=== PATIENT | female | born 1955 | race Caucasian/White ===

== ENCOUNTER → 2024-06-25 12:48 | Outpatient (REF) | payer MEDICARE, OTHER, SELFPAY | LOC: WDC 12:48 | PROVIDERS: ATTENDING PHYSICIAN Family Medicine | DX: Z12.31 Encounter for screening mammogram for malignant neoplasm of breast (principal) | CPT/HCPCS: 77063; 77067 ==

== ENCOUNTER → 2024-07-26 10:15 | Outpatient (REF) | payer MEDICARE, OTHER, SELFPAY | LOC: RCS 10:15 | PROVIDERS: ATTENDING PHYSICIAN Internal Medicine; FAMILY PHYSICIAN Family Medicine | DX: I35.0 Nonrheumatic aortic (valve) stenosis (principal) | CPT/HCPCS: 93306 ==

== ENCOUNTER → 2025-02-24 10:13 | Outpatient (REF) | payer MEDICARE, OTHER, SELFPAY | LOC: WDC 10:13 | PROVIDERS: ATTENDING PHYSICIAN Nurse Practitioner Adult Health | DX: N64.52 Nipple discharge (principal) | CPT/HCPCS: 76642; 77061; 77065 ==

== ENCOUNTER → 2025-02-28 18:45 | Outpatient (REF) | payer MEDICARE, OTHER, SELFPAY | LOC: MRI 3T 18:45 | PROVIDERS: ATTENDING PHYSICIAN Nurse Practitioner Adult Health; FAMILY PHYSICIAN Family Medicine | DX: N64.52 Nipple discharge (principal) | CPT/HCPCS: 77049 ==

== ENCOUNTER → 2025-03-18 14:45 | Outpatient (REF) | payer MEDICARE, OTHER, SELFPAY | LOC: WDC 14:45 | PROVIDERS: ATTENDING PHYSICIAN Surgery; FAMILY PHYSICIAN Nurse Practitioner Adult Health | DX: R92.8 Other abnormal and inconclusive findings on diagnostic imaging of breast (principal) | CPT/HCPCS: 76642 ==

== ENCOUNTER → 2025-04-02 12:58 | Outpatient (REF) | payer MEDICARE, OTHER, SELFPAY ==
--- NOTE | 2025-04-02 15:50 | OID.BR.INTR ---
[facility] Breast Navigator - Initial
- -
Date of Contact: 04/02/25
Met with patient. Patient given written information on navigator services available at [facility]. Will follow up as needed per protocol.
== END ==
LOC: WDC 12:58
PROVIDERS: ATTENDING PHYSICIAN Surgery
DX: N63.10 Unspecified lump in the right breast, unspecified quadrant (principal); N63.11 Unspecified lump in the right breast, upper outer quadrant
CPT/HCPCS: 19083; 88305; 88342; 88360; A4648

== ENCOUNTER → 2025-04-28 08:51 | Outpatient (REF) | payer MEDICARE, OTHER, SELFPAY | LOC: WDC 08:51 | PROVIDERS: ATTENDING PHYSICIAN Surgery | DX: D05.91 Unspecified type of carcinoma in situ of right breast (principal) | CPT/HCPCS: 19285; A4648 ==

== ENCOUNTER 2025-04-29 06:04 | Day surgery (SDC) | payer MEDICARE, OTHER, SELFPAY ==
[2025-04-29 06:49] VITALS: BMI 22.3
[2025-04-29 06:50] VITALS: BP 162/76; BMI 22.3
--- NOTE | 2025-04-29 06:59 | W.IMMPOSTOP ---
Surgical Immed Post Op Note
-
Primary Surgeon: [email or web address]
Assisting Surgeon: None
Pre-op Diagnosis: Right breast DCIS
Post-op Diagnosis: Same
Procedure Performed: Right localized lumpectomy, sentinel lymph node mapping and biopsy
Anesthesia Type: TIVA
Specimen / Cultures: Right lumpectomy, margins
Estimated Blood Loss: 6cc
Complications: None
Operative Findings: Clip and reflector in specimen
--- NOTE | 2025-04-29 06:59 | W.SUR.PREOP ---
Pre-Operative Surgical Note
-
I have examined this patient prior to the performance of the scheduled procedure.
The patient's condition is unchanged from the time of the current History and
Physical and the patient is able to undergo the scheduled procedure.
[2025-04-29] MEDS: TYLENOL 1000 MG PO (07:03)
[2025-04-29] MEDS: LOVENOX 40 MG SC (07:06)
[2025-04-29] MEDS: NORMOSOL-R/PLASMALYTE-A 1000 IV (07:06)
[2025-04-29 09:09] VITALS: BP 109/71
--- NOTE | 2025-04-29 09:12 | OR.RPT ---
Operative Report
Operative Report
Date of procedure: 04/29/2025
Surgeon: Ezra
Preoperative diagnosis: Right breast DCIS
Postoperative diagnosis: Right breast DCIS
Procedure: Right localized lumpectomy and oncoplastic mastoplasty
The patient is a 69-year-old female who presented with pathologic left nipple discharge. Workup included mammogram and ultrasound which were negative. She went forward with breast MRI showing extensive region of non-mass enhancement. She
underwent MRI guided biopsy showing ductal carcinoma in situ. Options were provided to biopsy the extent of the disease or to proceed with an attempt at breast conservation surgery and the patient chose the latter. On the day prior to the
procedure she presented to the [facility] where a Dana reflector was placed.
On the day of the procedure the patient presented to same-day surgical services unit. She was prepped and verified site and procedure. DVT and antibiotic prophylaxis were provided. She was transferred to the operating room and in the supine
position intravenous sedation was delivered.
Right breast was prepped and draped in usual sterile fashion. The team performed an appropriate timeout procedure. All tissues were anesthetized with 1% lidocaine plain. A lateral curvilinear incision was made overlying the area of highest
external Dana signal and extended superiorly and inferiorly. Skin flaps were elevated in the oncoplastic plane and a wide lumpectomy was performed with the cautery. Time out of body was noted and the specimen was oriented for the pathologist.
Specimen radiography confirmed the presence of the biopsy clip and Dana reflector within it. Additional margins were harvested for permanent analysis from the posterior, medial, superior, lateral, inferior, and anterior dimensions. These were
oriented as well. An additional anterior skin margin was taken and sent under separate cover.
This is a left resulting defect of 11 x 6 cm therefore in an oncoplastic fashion and internal parenchymal advancement flap was made by forming 2 additional incisions with the cautery. Hemoclips were placed in the resection cavity and Marcaine 0.5%
plain was instilled into all tissues. Tissues were advanced and closed using simple interrupted 3-0 plain of the deep intermediate and subcutaneous tissue and the skin was closed with running subcuticular 4 Monocryl. Surgical glue and sterile
compressive dressings were applied. All sponge needle and instrument counts were correct and the patient was transferred to the same-day surgical services for recovery
([id number])
[2025-04-29 09:15] VITALS: BP 90/73
[2025-04-29 09:31] VITALS: BP 115/64
[2025-04-29 09:40] VITALS: BP 115/63
== END 2025-04-29 10:00 | disposition home or self-care (01) ==
LOC: SDS 06:04
PROVIDERS: ATTENDING PHYSICIAN Surgery
DX: C50.911 Malignant neoplasm of unspecified site of right female breast (principal); D05.11 Intraductal carcinoma in situ of right breast
CPT/HCPCS: 38525; 19301; 38900; 76098; 88305; 88307; 88341; 88342; 88360; L8000

== ENCOUNTER → 2025-06-04 15:43 | Outpatient (REF) | payer MEDICARE, OTHER, SELFPAY | LOC: RCS 15:43 | PROVIDERS: ATTENDING PHYSICIAN Internal Medicine; FAMILY PHYSICIAN Family Medicine | DX: C50.911 Malignant neoplasm of unspecified site of right female breast (principal); I35.0 Nonrheumatic aortic (valve) stenosis; I10 Essential (primary) hypertension | CPT/HCPCS: 93306 ==

== ENCOUNTER 2025-06-12 09:02 | Outpatient (RCR) | payer MEDICARE, OTHER, SELFPAY | END 2025-06-12 23:59 | disposition home or self-care (01) | LOC: RPT 09:02 | PROVIDERS: ATTENDING PHYSICIAN Surgery; FAMILY PHYSICIAN Family Medicine | DX: D05.11 Intraductal carcinoma in situ of right breast (principal); L90.5 Scar conditions and fibrosis of skin; Z73.6 Limitation of activities due to disability; M62.81 Muscle weakness (generalized) | CPT/HCPCS: 97110; 97140; 97162; 97530 ==

== ENCOUNTER 2025-08-13 06:52 | Outpatient (RCR) | payer MEDICARE, OTHER, SELFPAY | END 2025-08-13 23:59 | disposition home or self-care (01) | LOC: RPT 06:52 | PROVIDERS: ATTENDING PHYSICIAN Surgery; FAMILY PHYSICIAN Family Medicine | DX: D05.11 Intraductal carcinoma in situ of right breast (principal); L90.5 Scar conditions and fibrosis of skin; Z73.6 Limitation of activities due to disability; M62.81 Muscle weakness (generalized) | CPT/HCPCS: 97110; 97112; 97140; 97530 ==

== ENCOUNTER 2025-08-28 13:29 | Outpatient (RCR) | payer MEDICARE, OTHER, SELFPAY | END 2025-08-29 07:18 | disposition home or self-care (01) | LOC: RPT 13:29 | PROVIDERS: ATTENDING PHYSICIAN Surgery; FAMILY PHYSICIAN Family Medicine | DX: D05.11 Intraductal carcinoma in situ of right breast (principal); L90.5 Scar conditions and fibrosis of skin; Z73.6 Limitation of activities due to disability; M62.81 Muscle weakness (generalized) | CPT/HCPCS: 97112; 97140; 97530 ==